=== PATIENT | female | born 1970 | race Caucasian/White ===

== ENCOUNTER 2020-03-30 17:56 | Emergency (ER) | payer MEDICAID ==
[~2020-03-30] VITALS: Ht 157.5 cm; Wt 111.1 kg
[2020-03-30 18:11] VITALS: Ht 157.5 cm; Wt 111.1 kg
[2020-03-30] MEDS ORDERED: BACTRIM DS1 TAB PO (19:28)
[2020-03-30] MEDS ORDERED: PYRIDIUM200 M1 PO (19:28)
[2020-03-30 19:44] LABS: microscopic required? YES; urine erythrocyte NEGATIVE (NEGATIVE)
[2020-03-30 19:52] VITALS: BP 146/73
== END 2020-03-30 19:57 | disposition home or self-care (01) ==
LOC: ED 17:56
PROVIDERS: Emergency Medicine
DX: N39.0 Urinary tract infection, site not specified (principal); E11.9 Type 2 diabetes mellitus without complications; Z90.711 Acquired absence of uterus with remaining cervical stump; Z88.0 Allergy status to penicillin
CPT/HCPCS: J1885